=== PATIENT | female | born 1980 | race Caucasian/White ===

== ENCOUNTER 2024-01-07 12:26 | Emergency (ER) | payer OTHER ==
[2024-01-07 12:54] LABS: BASOPHILS ABSOLUTE AUTO 0.1 K/mm3 (0.0-0.2); BASOPHILS PERCENT AUTO 0.4 % (0.0-1.0); EOSINOPHILS PERCENT AUTO 0.2 % (0.0-6.0); HEMATOCRIT 47.9 % (37.0-47.0); HEMOGLOBIN 15.6 gm/dl (12.0-16.0); IMMATURE GRAN ABSOLUTE AUTO 0.11 K/mm3 (0.00-0.05); IMMATURE GRAN PERCENT AUTO 0.6 % (0.0-0.4); LYMPHOCYTES ABSOLUTE AUTO 3.5 K/mm3 (1.0-4.8); LYMPHOCYTES PERCENT AUTO 18.2 % (24.0-44.0); MEAN CORPUSCULAR HEMOGLOBIN 29.4 pg (28.0-32.0); MEAN CORPUSCULAR HGB CONC 32.6 g/dl (32.0-36.0); MEAN CORPUSCULAR VOLUME 90.2 fl (83.0-99.0); MEAN PLATELET VOLUME 9.7 fl (9.4-12.3); MONOCYTES ABSOLUTE AUTO 1.4 K/mm3 (0.0-0.8); MONOCYTES PERCENT AUTO 7.5 % (0.0-8.0); NEUTROPHILS ABSOLUTE AUTO 13.9 K/mm3 (1.8-7.7); NEUTROPHILS PERCENT AUTO 73.1 % (41.0-71.0); PLATELET COUNT,PLT 267 K/mm3 (150-400); RED BLOOD CELL COUNT 5.31 M/mm3 (4.10-5.30); WHITE BLOOD CELL COUNT,WBC 18.99 K/mm3 (3.9-11.3)
[2024-01-07] MEDS ORDERED: Sodium Chloride 0.9% 10 ML Syringe FLUSH PRN (13:04)
[2024-01-07] MEDS ORDERED: Sodium Chloride 0.9% 45 ML IV SCH (13:15)
[2024-01-07] MEDS: Iopamidol 755 Mg/ML 100 ML Bottle IVPUSH ONE (13:17)
[2024-01-07 13:23] LABS: ALANINE AMINOTRANSFERASE,ALT 31 U/L (14-59); ALBUMIN 4.1 g/dl (3.4-5.0); ALKALINE PHOSPHATASE 67 U/L (46-116); ANION GAP 14.2 (5-15); ASPARTATE AMNIOTRANSFERASE,AST 24 U/L (15-37); BILIRUBIN TOTAL 0.6 mg/dL (0.2-1.0); BLOOD UREA NITROGEN,BUN 21 mg/dL (7-18); BUN/CREATININE RATIO 26.3 (14-18); CALCIUM 9.3 mg/dL (8.5-10.1); CARBON DIOXIDE,CO2 28 mEq/L (21-32); CHLORIDE,CL 99 mEq/L (98-107); CREATININE 0.8 mg/dL (0.55-1.02); ESTIMATED GFR 93 mL/min (>60); GLUCOSE RANDOM 117 mg/dL (70-99); POTASSIUM,K 3.2 mEq/L (3.5-5.1); PROTEIN TOTAL,TP 8.2 g/dl (6.4-8.2); SODIUM,NA 138 mEq/L (136-145)
[2024-01-07 13:26] LABS: TROPONIN I HIGH SENSITIVITY 1345 pg/mL (<=51)
[2024-01-07 13:41] LABS: INR 1.04
[2024-01-07 13:42] LABS: PTT,PARTIAL THROMBOPLSTIN TIME 24.5 SECONDS (21.7-31.4)
[2024-01-07] MEDS: Heparin Sodium 5,000 Units/ML Vial IVPUSH ONE (13:50)
[2024-01-07] MEDS: Ondansetron 4 MG/2 ML SDV IVPUSH ONE ×2 (13:59→18:32)
[2024-01-07] MEDS: Heparin Sodium/D5W 25,000 UNITS/500 ML BAG IV SCH (14:06)
[2024-01-07] MEDS: Sodium Chloride 0.9% 1,000 ML IV ONE (14:15)
[2024-01-09 06:31] VITALS: BP 121/84; PULSE 124
== END 2024-01-07 18:42 ==
LOC: JD.ED 12:26
DX: I26.02 Saddle embolus of pulmonary artery with acute cor pulmonale (principal); Z79.899 Other long term (current) drug therapy
CPT/HCPCS: 36415; 71045; 71275; 80053; 83880; 84484; 84703; 85025; 85379; 85610; 85730; 93005; 96365; 96366; 96375; 96376; 99285; J1644; J2405; Q9967; 93010